=== PATIENT | male | born 1965 | race Caucasian/White ===

== ENCOUNTER 2024-06-23 06:34 | Day surgery (SDC) | payer OTHER ==
[~2024-06-23] VITALS: Ht 177.8 cm; Wt 66.8 kg
[~2024-06-23 06:34] MED LIST: ALBU18HF12 IH; CARV3.1231 PO; FAMO20 PO; FLUT1BLS6 PO; GABA-1181 PO; IPRA3AMP24 IH; MONT-40 PO; SACU1TAB PO
[2024-06-23] MEDS: SODIUM CHLORIDE 0.9% 1,000 ML IV ONE (08:21)
[2024-06-23] MEDS ORDERED: MIDAZOLAM HCL 2 MG/2 ML VIAL ONE (09:00)
[2024-06-23] MEDS ORDERED: FentaNYL CITRATE PF 100 MCG/2 ML VIAL ONE (09:00)
[2024-06-23 09:55] VITALS: PULSE 101; RESP 18; O2SAT 91
[2024-06-23] MEDS ORDERED: MethylPREDNISolone SOD SUCC 125 MG/2 ML VIAL ONE (10:33)
[2024-06-23] MEDS: MethylPREDNISolone SOD SUCC 125 MG/2 ML VIAL IVP ONE (10:46)
[2024-06-23] MEDS ORDERED: LIDOCAINE 2% 11 ML JELLY ONE (12:00)
[2024-06-23] MEDS ORDERED: ALBUTEROL SULFATE 2.5 MG/0.5 ML NEB SOLUTION NEB ONE (12:00)
[2024-06-23] MEDS ORDERED: LIDOCAINE 4% 50 ML SOLUTION ONE (12:00)
[2024-06-23] MEDS ORDERED: BENZOCAINE 20% 50 MCG/SPRAY 57 GM ONE (12:00)
== END 2024-06-23 12:50 | disposition home or self-care (01) ==
LOC: SURGERY 06:34
PROVIDERS: ATTEND Internal Medicine Critical Care Medicine
DX: R05.3 Chronic cough (principal); J38.4 Edema of larynx; B37.0 Candidal stomatitis; I70.0 Atherosclerosis of aorta; M47.814 Spondylosis without myelopathy or radiculopathy, thoracic region; R04.2 Hemoptysis; R06.2 Wheezing; R91.8 Other nonspecific abnormal finding of lung field; K40.90 Unilateral inguinal hernia, without obstruction or gangrene, not specified as recurrent; I10 Essential (primary) hypertension; E04.1 Nontoxic single thyroid nodule; Z87.891 Personal history of nicotine dependence; Z79.899 Other long term (current) drug therapy
CPT/HCPCS: 31623; 99156; 99157; 31624; 94640; 71045; J3010; J2250; J2919; J7613; Z7610